=== PATIENT | male | born 1995 | race Caucasian/White ===

== ENCOUNTER 2017-11-30 16:25 | Inpatient (IN) | payer BC, OTHER ==
[~2017-11-30] VITALS: Ht 185.4 cm; Wt 83.9 kg
--- NOTE | 2017-11-30 19:45 | NUR ---
Intake Note Assessment done in intake office. Px is A&Ox4. Px is ambulatory with steady gait. Speech is clear and audible. Px appears anxious but cooperative.VS as follows BP= 130/63, OR= 80, RR= 18, T= 97.2, O2sat= 99% in RA. Px is here for medically supervised withdrawal from Heroin. Px has no seizure hx. Px reported NKA. Px brought some medicines to be reconciled. Admission process will continue in the unit.
[2017-11-30] MEDS ORDERED: ONDANSETRON 4 MG/2 ML VIAL IM PRN (20:00)
[2017-11-30] MEDS ORDERED: IBUPROFEN 400 MG TABLET PO PRN (20:00)
[2017-11-30] MEDS ORDERED: CLONIDINE HCL 0.1 MG TABLET PO PRN (20:00)
[2017-11-30] MEDS ORDERED: DICYCLOMINE HCL 20 MG TABLET PO PRN (20:00)
[2017-11-30] MEDS ORDERED: LOPERAMIDE HCL 2 MG CAPSULE PO PRN ×2 (20:00)
[2017-11-30] MEDS ORDERED: ACETAMINOPHEN 325 MG TABLET PO PRN (20:00)
[2017-11-30] MEDS ORDERED: MAG HYDROX/AL HYDROX/SIMETH 30 ML LIQUID UDC PO PRN (20:00)
[2017-11-30] MEDS ORDERED: ONDANSETRON ODT 4 MG TAB.RAPDIS SL PRN (20:00)
[2017-11-30] MEDS ORDERED: MAGNESIUM HYDROXIDE 30 ML LIQUID UDC PO PRN (20:00)
[2017-11-30] MEDS ORDERED: MIRALAX 17 GM POWD.PACK PO PRN (20:00)
[2017-11-30] MEDS ORDERED: BUPR200T2 PO (20:01)
[2017-11-30] MEDS ORDERED: PARO20TA51 PO (20:01)
[2017-11-30 20:30] VITALS: BP 120/63
--- NOTE | 2017-11-30 20:30 | NUR ---
Admission Note Admitted a 22 y/o male inder for medically supervised withdrawal from Heroin. Px arrived in [facility] unit on 11/30/2017 at 2003. Body searched done and skin check performed, no contraband found and skin is intact. Inder's height is 6'1" and weighs 185 lbs. in standing scale. Px is oriented to floor unit and his room. Px follows a regular diet, reported NKA to food or drugs, and wishes to be in FULL CODE. No SOB reported. Respirations are even and unlabored. Abdomen is non-distended with active bowel sounds in all 4 quadrants. Last BM reported was 11/29/2017. No N/V reported. Px reported PMHx of anxiety. Px denies suicidal thoughts or hx of seizure. Px have not yet provided urine for UDS. Px reported substance abuse of Heroin- 0.5 G IV daily for 3-4 mos, where the last use was 2 hours prior admission, 0.3-0.4 G IV. Px is using heroin for 1 year. Px reported 4-5x treatments before. Px denies hospitalization for the past 30 days. Px stated that his longest sobriety was 4-5 mos in 2017. Inder is a cigarette smoker, 6 sticks daily as reported. Px refused flu and pneumonia vaccines. VS as follows BP= 120/63, NC= 64, RR=16, T= 37.6, O2sat= 100% on RA. COWS 4. Bed on lowest position, side rails up 2x, and call light within reach. We'll continue to monitor. Addendum: 12/01/17 at 0153 by LIZ ATKINS RN Correction T=97.6
[2017-11-30 21:01] LABS: BASOPHILS # (AUTO) 0.1 K/uL (0.0-8.0); BASOPHILS % (AUTO) 0.8 % (0.0-2.0); EOSINOPHILS # (AUTO) 0.3 K/uL (0.0-0.7); EOSINOPHILS % (AUTO) 3.7 % (0.0-7.0); HEMATOCRIT 37.8 % (36.7-47.1); HEMOGLOBIN 12.7 g/dL (12.5-16.3); LYMPHOCYTES # (AUTO) 2.7 K/uL (20.0-40.0); MEAN CORPUSCULAR HEMOGLOBIN 28.1 uug (23.8-33.4); MEAN CORPUSCULAR HGB CONC 34 g/dL (32.5-36.3); MEAN CORPUSCULAR VOLUME 83.8 fL (73.0-96.2); MONOCYTES # (AUTO) 1.2 K/uL (2.0-10.0); MONOCYTES % (AUTO) 16.3 % (0.0-11.0); NEUTROPHILS # (AUTO) 3.1 K/uL (1.8-8.9); NEUTROPHILS % (AUTO) 42.2 % (38.5-71.5); PLATELET COUNT (AUTO) 256 K/uL (152-348); RED BLOOD CELL COUNT(AUTO) 4.51 MIL/uL (4.06-5.63); WHITE BLOOD COUNT (AUTO) 7.2 K/uL (3.6-10.2)
[2017-11-30 21:09] LABS: ETHANOL < 3 MG/DL (0-0)
[2017-11-30 21:10] LABS: ALANINE AMINOTRANSFERASE 53 U/L (16-63); ALKALINE PHOSPHATASE 89 U/L (50-136); AMYLASE 29 U/L (25-115); ASPARTATE AMINOTRANSFERASE 26 U/L (15-37); BILIRUBIN,TOTAL 0.3 mg/dL (0.2-1.0); CARBON DIOXIDE 33 mmol/L (21-32); CHLORIDE 99 mmol/L (98-107); GLUCOSE 62 mg/dL (74-106); LIPASE 70 U/L (73-393); POTASSIUM 4.1 mmol/L (3.5-5.1); TOTAL PROTEIN, SERUM 8.1 g/dL (6.4-8.2); UREA NITROGEN, BLOOD 13 mg/dL (7-18)
[2017-11-30 21:30] LABS: BAND % (MANUAL) 5 % (0-10); EOSINOPHILS % (MANUAL) 2 % (0-8); LYMPHOCYTES % (MANUAL) 40 % (20-40); MONOCYTES % (MANUAL) 16 % (2-10); NEUTROPHILS % (MANUAL) 37 % (42-75)
[2017-11-30 21:37] LABS: THYROID STIMULATING HORMONE 3.114 mIU/mL (0.358-3.740)
[2017-11-30] MEDS ORDERED: BUPR200T PO (22:48)
[2017-11-30] MEDS ORDERED: MAGN250T10 PO (22:48)
[2017-11-30] MEDS ORDERED: PARO20TA7 PO (22:48)
[2017-12-01] VITALS: BP 116/64
[2017-12-01 04:00] VITALS: BP 121/70
--- NOTE | 2017-12-01 04:00 | NUR ---
COWS deferred COWS deferred at 0000 and 0400 due to the px is asleep, to assess if the px is awake per doctor's order. We'll continue to monitor.
--- NOTE | 2017-12-01 07:10 | NUR ---
End of Shift Note During the shift, px slept most of the time. Px didn't provide urine yet for UDS. Blood was drawn for labs. Pxs oral intake is 500 ml, no urine, No BM. Slept for 8 hours. Bed in lowest position, side rails up 2x, and call light within reach. We'll continue to monitor.
--- NOTE | 2017-12-01 07:45 | NUR ---
START OF SHIFT Endorse rcvd from ongoing nurse, client is lying in bed, he is a/o X 4, client presents with irritable mood, flat affect, skin moist, fine tremors, moist skin, restless legs, dilated pupils, goosebump, difficulty concentrating, he is jumpy and answers with a loud voice. Client reports difficulty sleeping, pins and needle sensation on legs, fatigue, nausea, loose stools, generalized body aches, and sweats. Encourage client to increase PO fluid to facilitate detox. Encourage client to participate in ADL and to attend group therapy for skills to maintain sober. Client has not been able to provide urine for drug screening. Last COWS 4 @ 2000. Client slept 8 hrs. [place] precautions rendered. Call light within reach.
[2017-12-01 08:00] VITALS: BP 125/68
[2017-12-01] MEDS ORDERED: TUBERCULIN,PURIF.PROT.DERIV. 5 TU/0.1 ML TEST ID ONE (09:00)
[2017-12-01] MEDS: BUPRENORPHINE HCL 2 MG TAB.SUBL SL PRN ×2 (09:24→15:07)
--- NOTE | 2017-12-01 09:24 | NUR ---
PRN Subutex 4mg SL administered for anxiety, irritability, joint pain, nausea, loose stool, tremors, sweats, shills, dilated pupils, goosebump, COWS 18, Call light within reach..
--- NOTE | 2017-12-01 09:26 | NUR ---
PPD Test administered to L forearm, client tolerated well.
--- NOTE | 2017-12-01 09:54 | NUR ---
Reassess PRN Subutex 4mg, client reports feeling relief of joint pain, he appears less anxious and irritable, COWS 13, Call light within reach..
[2017-12-01 10:25] LABS: *AMPHETAMINE, URINE NEGATIVE (NEGATIVE); *BARBITURATE, URINE NEGATIVE (NEGATIVE); *CANNABINOID, URINE POSITIVE (NEGATIVE); *COCCAINE, URINE NEGATIVE (NEGATIVE); *OPIATE, URINE POSITIVE (NEGATIVE); *PHENCYCLIDINE SCREEN,URINE NEGATIVE (NEGATIVE)
[2017-12-01] MEDS: PAROXETINE HCL 20 MG TABLET PO SCH (11:31)
[2017-12-01] MEDS: buPROPion SR 100 MG TABLET.SA PO SCH (11:31)
[2017-12-01 12:00] VITALS: BP 128/74
--- NOTE | 2017-12-01 15:07 | NUR ---
PRN Subutex 4mg SL administered for anxiety, irritability, joint pain, nausea, loose stool, tremors, red, teary eyes, yawning, sweats, shills, dilated pupils, goosebump, COWS 19, Call light within reach.
--- NOTE | 2017-12-01 15:08 | NUR ---
PRN Tylenol 650mg Po administered for LAMAR @ frontal area, does not radiate, pain level 6/10. Call light within reach.
--- NOTE | 2017-12-01 15:37 | NUR ---
Reassess PRN Subutex 4mg, client continues to present with anxious, irritable mood, he reports relief from nausea, joint pain, and denies any more loose stools. COWS 12, Call light within reach.
--- NOTE | 2017-12-01 16:08 | NUR ---
Reassess PRN Tylenol 650mg, client verbalizes relief from LAMAR pain level 0/10. Call light within reach.
[2017-12-01 16:55] VITALS: BP 117/66
--- NOTE | 2017-12-01 19:30 | NUR ---
END OF SHIFT Endorsed client to incoming nurse, client is a/o x 4, he needs encouragement to attend group therapy, client remains isolated in his room due to withdrawal symptoms, he continues to present with anxious mood, flat affect, restless legs, fine tremors, and nausea. He consumed ~50% of meals. PRN Tylenol 650mg PO for LAMAR, Subutex 4mg SL x 2 for COWS >12, noted effective. Adequate PO fluid intake 2084mL, void x 2, stool x 1. Last COWS 12 @ 1600. Call light within reach.
--- NOTE | 2017-12-01 19:45 | NUR ---
Start of Shift Note Received a 22 y/o male px admitted on 11/30/2017 for medically supervised withdrawals from opiate. Px was placed on on 3 day modified Subutex taper. Px tolerating well. Px is awake on bed in fowlers position. Px stated "My anxiety is mild at the moment, but I have hot/flushed chills". Bed in lowest position, side rails up 2x and call light within reach. We'll continue to monitor.
[2017-12-01 20:00] VITALS: BP 118/66
[2017-12-01] MEDS: diphenhydrAMINE 50 MG CAPSULE PO PRN (20:13)
[2017-12-01] MEDS ORDERED: BUPRENORPHINE HCL 2 MG TAB.SUBL SL SCH (21:00)
[2017-12-01] MEDS: METHOCARBAMOL 750 MG TABLET PO PRN (23:40)
--- NOTE | 2017-12-01 23:40 | NUR ---
PRN meds At 2012, Benadryl 50 mg PO given as PRN for insomnia. At 2339, Clonidine 0.1 mg/tab, 1 tab and Robaxin 750 mg/tab, 1 tab given PO as PRN for restless legs and leg pain of 6/10. We'll continue to monitor.
[2017-12-02] VITALS: BP 120/70
--- NOTE | 2017-12-02 00:45 | NUR ---
Reassessment of restless legs and pain Reassessment was deferred due to the px is already asleep. We'll continue to monitor.
[2017-12-02 04:00] VITALS: BP 112/62
--- NOTE | 2017-12-02 04:00 | NUR ---
COWS deferred COWS deferred due to the px is asleep, to assess if the px is awake per doctor's order. We'll continue to monitor.
--- NOTE | 2017-12-02 07:30 | NUR ---
START OF SHIFT Endorse rcvd from ongoing nurse, client is lying in bed, he is a/o X 4, client presents with anxious mood, flat affect, skin moist, fine tremors, moist skin, restless legs, dilated pupils, goosebump, difficulty concentrating. Client reports pins and needle sensation on legs, fatigue, nausea, generalized body aches, and sweats. Encourage client to increase PO fluid to facilitate detox. Encourage client to participate in ADL and to attend group therapy for skills to maintain sober. Client is on 3 day Subutex taper. Last COWS 8 @ 2400. Client slept 4 hrs. [place] precautions rendered. Call light within reach.
--- NOTE | 2017-12-02 07:37 | NUR ---
End of Shift Note During the shift at 2012, Benadryl 50 mg PO given for insomnia. It was not so effective, px slept only for 4 hours. At 2340, Px was given Robaxin 750 Po and Clonidine 0.1 mg PO for restless legs and pain. Pxs oral intake is 1 L, voided 2x, BM 1x. Last COWS 8. At 0630, px is asleep on bed in left side lying position. Bed in lowest position, side rails up 2x and call light within reach. We'll continue to monitor. Px endorsed to AM shift nurse.
[2017-12-02 08:00] VITALS: BP 103/62
[2017-12-02 08:07] LABS: HEPATITIS B SURFACE AG Negative (Negative)
[2017-12-02] MEDS: PAROXETINE HCL 20 MG TABLET PO SCH (08:59)
[2017-12-02] MEDS: buPROPion SR 100 MG TABLET.SA PO SCH (08:59)
[2017-12-02] MEDS: BUPRENORPHINE HCL 2 MG TAB.SUBL SL SCH ×3 (08:59→21:31)
[2017-12-02] MEDS ORDERED: HYDROXYZINE PAMOATE 25 MG CAPSULE PO PRN (09:00)
[2017-12-02 12:00] VITALS: BP 127/63
--- NOTE | 2017-12-02 12:46 | NUR ---
Therapist encouraged client to go to groups and share with others, which would benefit with reducing anxiety and social isolation.
[2017-12-02] MEDS ORDERED: GABAPENTIN 300 MG CAPSULE PO SCH ×2 (15:00→21:00)
[2017-12-02 16:55] VITALS: BP 117/65
--- NOTE | 2017-12-02 19:38 | NUR ---
END OF SHIFT Endorsed client to incoming nurse, client is a/o x 4, he needs encouragement to attend group therapy, client remains isolated in his room due to withdrawal symptoms, he continues to present with anxious mood, flat affect, restless legs, fine tremors, and nausea. He consumed ~50% of meals. Adequate PO fluid intake 1955mL, void x 3. Last COWS 16 @ 1600. Call light within reach.
--- NOTE | 2017-12-02 19:45 | NUR ---
Start of Shift Notes Received a 22 y/o male px, admitted on 11/30/2017 for medically supervised withdrawals from Opiate. Px is awake lying on bed in fowlers position. Few unfinished snacks noted on top of bed side table and cabinet. Px stated "My anxiety is 1/10, and can I have Seroquel before I sleep? Last night was hard, I didn't sleep well". Last reported COWS 16 from AM shift nurse. Bed in lowest position, side rails up 2x, and call light within reach. We'll continue to monitor.
[2017-12-02 20:00] VITALS: BP 121/55
[2017-12-02] MEDS: METHOCARBAMOL 750 MG TABLET PO PRN (21:31)
[2017-12-02] MEDS: diphenhydrAMINE 50 MG CAPSULE PO PRN (21:31)
--- NOTE | 2017-12-02 21:31 | NUR ---
PRN meds Px was given Benadryl 50 mg/cap, 1 cap given PO and Vistaril 25 mg/cap, 2 caps given PO for insomnia. Robaxin 750 mg/tab, 1 tab given PO for leg pain of 6/10. We'll continue to monitor.
--- NOTE | 2017-12-02 22:30 | NUR ---
Reassessment of leg pain Px stated that his leg pain improved from 6/10 to 1-2/10. We'll continue to monitor.
[2017-12-03] VITALS: BP 118/63
[2017-12-03 04:00] VITALS: BP 118/63
--- NOTE | 2017-12-03 07:15 | NUR ---
End of Shift Notes During the shift at 2130, Benadryl 50 mg PO and Vistaril 50 mg PO were given for insomnia and Robaxin 750 mg PO for leg pain. They were effective. Px's oral intake is 500 ml, voided 1x, No BM. Px slept for 7.5 hours. Last COWS 7. At 0630, Px is asleep on bed. Last COWS 7. Bed in lowest position, side rails up 2x, and call light within reach. We'll continue to monitor. Px endorsed to AM shift nurse.
--- NOTE | 2017-12-03 07:34 | NUR ---
Start of Shift Notes: Received patient in his room. Alert and oriented x 4. Verbally responsive. No AV hallucinations noted. No S/I or H/I noted. Patient states "I've been better." Patient is a 22 year old male admitted for opiate withdrawal who was placed on a 3-day Subutex taper as ordered. No adverse reactions noted. Educated patient on his current plan of care for the day and his medication regimen. Slept for 7 hours. Last COWS 6. Will continue to monitor closely.
[2017-12-03 08:00] VITALS: BP 109/55
[2017-12-03] MEDS ORDERED: BUPRENORPHINE HCL 2 MG TAB.SUBL SL SCH (09:00)
[2017-12-03] MEDS: PAROXETINE HCL 20 MG TABLET PO SCH (09:09)
[2017-12-03] MEDS: buPROPion SR 100 MG TABLET.SA PO SCH (09:09)
[2017-12-03 12:00] VITALS: BP 126/62
[2017-12-03] MEDS ORDERED: ONDA4TAB11 SL (12:46)
[2017-12-03] MEDS ORDERED: PARO20TA7 PO (12:46)
[2017-12-03] MEDS ORDERED: METH-406 PO (12:46)
[2017-12-03] MEDS ORDERED: CLON0.1T14 PO (12:46)
[2017-12-03] MEDS ORDERED: DIPH50CA37 PO (12:46)
[2017-12-03] MEDS ORDERED: HYDR-3895 PO (12:46)
[2017-12-03] MEDS ORDERED: DICY20TA28 PO (12:46)
[2017-12-03] MEDS ORDERED: BUPR100T6 PO (12:46)
[2017-12-03 16:00] VITALS: BP 114/71
--- NOTE | 2017-12-03 19:18 | NUR ---
Psych MD Communication: Dr. Campa (on-call) notified of patient's request for Seroquel to help him sleep. Orders obtained. Orders noted and carried out. MD is unable to enter in orders at this time. Will continue to monitor.
--- NOTE | 2017-12-03 19:21 | NUR ---
End of Shift Notes: Patient completed his 3-day modified Subutex taper as ordered. No adverse reactions noted. VS monitored closely. No significant abnormalities noted. Withdrawal symptoms were closely monitored. Initial COWS 7, patient presented with chills, hot flashes, nasal stuffiness, myalgia, fine tremors and anxiety. Last COWS 5. Patient vebrbalized that Subutex has been effective in reducing his withdrawal symptoms. Participated in group and activities. All needs met and attended. Will continue to monitor closely.
[2017-12-03] MEDS ORDERED: QUETIAPINE FUMARATE 25 MG TABLET PO PRN (19:30)
[2017-12-03 20:00] VITALS: BP 134/67
--- NOTE | 2017-12-03 20:16 | NUR ---
START OF SHIFT Pt is a 22 y/o male px admitted on 11/30/2017 for opiate withdrawals. Pt has completed his 3 day modified Subutex taper and is scheduled for discharge tomorrow. Pt is A/O X 4,states feeling better, c/o mild anxiety .Last COWS=5. All safety measures in place. Call light is with in reach.Will continue to monitor for safety.
[2017-12-03] MEDS: METHOCARBAMOL 750 MG TABLET PO PRN (22:30)
--- NOTE | 2017-12-03 22:32 | NUR ---
PRN MEDS PRN ROBAXIN AND SEROQUEL GIVEN ORDERED FOR C/O MYALGIA AND INSOMNIA.WILL MONITOR FOR EFFECTIVENESS.
--- NOTE | 2017-12-03 23:30 | NUR ---
PRN F/U PRN MEDS ARE EFFECTIVE.PT IS RESTING IN BED WITH EYES CLOSED,NO S/S OF DISTRESS NOTED,BREATHING IS EVEN AND NON LABORED.WILL CONTINUE TO MONITOR.
[2017-12-04] VITALS: BP 122/71
--- NOTE | 2017-12-04 | NUR ---
COWS DEFERRED D/T PT BEING ASLEEP.PT IS SLEEPING COMFORTABLY,BREATHING IS EVEN AND NON LABORED,NO S/S OF DISTRESS NOTED.WILL CONTINUE TO MONITOR.
[2017-12-04 04:00] VITALS: BP 101/62
--- NOTE | 2017-12-04 04:00 | NUR ---
COWS DEFERRED D/T PT BEING ASLEEP.PT IS SLEEPING COMFORTABLY,BREATHING IS EVEN AND NON LABORED,NO S/S OF DISTRESS NOTED.WILL CONTINUE TO MONITOR.
--- NOTE | 2017-12-04 06:52 | NUR ---
END OF SHIFT Pt is a 22 y/o male px admitted on 11/30/2017 for opiate withdrawals. Pt has completed his 3 day modified Subutex taper and is scheduled for discharge today. Pt is A/O X 4.PRN Seroquel and Robaxin given last night with good effect.Last COWS=5.Pt slept 7 hrs,fluid intake was 1092 mls,voided x 4 . All safety measures in place. Call light is with in reach.Will continue to monitor for safety.
--- NOTE | 2017-12-04 07:45 | NUR ---
START OF SHIFT Received report from date night caregiver nurse. Pt is lying in bed resting. She is a 48 yo female admitted to [facility] on 12/03 for ETOH dependence with a h/o using crack cocaine, and Ativan. NKA, full code, regular diet. On admission she reported drinking vodka 1-2 pints per day. 5 day Ativan taper to start today. Mg level 1.6 with orders for replacement today. Pt's hair and clothes are disheveled and she is observed with tremors. Respirations even and unlabored. Skin is warm and moist. Safety measures in place. Addendum: 12/04/17 at 1010 by TOMY ARCINIEGA RN Incorrect patient. Disregard note.
--- NOTE | 2017-12-04 07:45 | NUR ---
START OF SHIFT Received report from sack cleaning hand nurse. Pt is lying in bed resting and easily arousable. He is a 29 yo male admitted to [facility] on 11/30 for opiate dependence. NKA, full code, regular diet. On admission he reported using heroin 0.5 grams per day. 3 day modified subutex taper complete and he is scheduled for discharge today. Respirations even and unlabored. Skin is warm and dry. Minimal s/s of withdrawal noted. Pt is cooperative with treatment. Safety measures in place
[2017-12-04 08:00] VITALS: BP 126/62
[2017-12-04] MEDS: PAROXETINE HCL 20 MG TABLET PO SCH (08:26)
[2017-12-04] MEDS: buPROPion SR 100 MG TABLET.SA PO SCH (08:27)
[2018-01-07] MEDS ORDERED: HYDR-3895 PO (12:37)
[2018-01-07] MEDS ORDERED: CLON0.1T14 PO (12:37)
[2018-01-07] MEDS ORDERED: TRAZ-144 PO (12:37)
[2018-01-07] MEDS ORDERED: IBUP-1955 PO (12:37)
[2018-01-07] MEDS ORDERED: METH-406 PO (12:37)
[2018-01-07] MEDS ORDERED: DICY20TA28 PO (12:37)
[2018-01-29] MEDS ORDERED: METH-406 PO (18:42)
[2018-01-29] MEDS ORDERED: IBUP-1955 PO (18:42)
[2018-01-29] MEDS ORDERED: CLON0.1T14 PO (18:42)
[2018-01-29] MEDS ORDERED: DICY20TA28 PO (18:42)
[2018-01-29] MEDS ORDERED: GABA-534 PO (18:42)
[2018-01-29] MEDS ORDERED: HYDR-3895 PO (18:42)
[2018-01-29] MEDS ORDERED: TRAZ-144 PO (18:42)
== END 2017-12-04 09:40 | disposition other institution (70) | DRG 895 ==
LOC: SRC 19:22
PROVIDERS: ADMIT Internal Medicine; ATTEND Internal Medicine
PROC: HZ2ZZZZ Detoxification Services for Substance Abuse Treatment (ICD-10-PCS; principal; 2017-11-30)
PROC: HZ41ZZZ Group Counseling for Substance Abuse Treatment, Behavioral (ICD-10-PCS; 2017-12-02)
PROC: HZ31ZZZ Individual Counseling for Substance Abuse Treatment, Behavioral (ICD-10-PCS; 2017-12-03)
DX: F11.23 Opioid dependence with withdrawal (principal); F12.10 Cannabis abuse, uncomplicated; F17.210 Nicotine dependence, cigarettes, uncomplicated; F41.9 Anxiety disorder, unspecified; F32.9 Major depressive disorder, single episode, unspecified; Z79.899 Other long term (current) drug therapy
CPT/HCPCS: 36415; 70030-TC; 80307; 80349; 80361; 83690; 83735; 84443; 85025; 86580; 86592; 86705; 86803; 87340; 87806; G0480; Q0163

== ENCOUNTER 2018-01-05 12:51 | Inpatient (IN) | payer BC, OTHER ==
[~2018-01-05] VITALS: Ht 185.4 cm; Wt 86.2 kg
[~2018-01-05 12:51] MED LIST: BUPR100T6 PO; CLON0.1T14 PO; DICY20TA28 PO; DIPH50CA37 PO; HYDR-3895 PO; MAGN250T10 PO; METH-406 PO; ONDA4TAB11 SL; PARO20TA7 PO
[2018-01-05] MEDS ORDERED: QUET100T PO (18:44)
[2018-01-05] MEDS ORDERED: CETI-102 PO (18:45)
[2018-01-05] MEDS ORDERED: FLUT9.9S NS (18:46)
[2018-01-05] MEDS ORDERED: TRAZ-144 PO (18:48)
[2018-01-05] MEDS ORDERED: CYCL10TA9 PO (18:48)
--- NOTE | 2018-01-05 18:52 | NUR ---
PRE ADMISSION Patient at intake, 22 year old male noted restless and fidgety, unable to sit still. Patient bp: 135/86 heart rate: 122 t: 98.1 r: 16 o2 sat: 99%. Patient reports he is here to detox off of: heroin and methamphetamine. Patient reports he relapsed two weeks ago and since then has been consuming heroin on a daily basis, and consumed methamphetamine 3-4 times in a two week period. Patient reports used heroin and methamphetamine a few hours prior to coming to [facility] detox. Patient brought all his home medications with him. reports past medical history of: anxiety. denies any history of seizures. Patients pupils are pinned. patient is hyperverbal and unable to sit still. Addendum: 01/05/18 at 1857 by EDMUND PEREA LVN Patient is six feet one inch tall and weighs 190 lbs. patient noted with track bennett to bilateral arms.
[2018-01-05] MEDS ORDERED: DICYCLOMINE HCL 20 MG TABLET PO PRN (19:15)
[2018-01-05] MEDS ORDERED: IBUPROFEN 600 MG TABLET PO PRN (19:15)
[2018-01-05] MEDS ORDERED: MAG HYDROX/AL HYDROX/SIMETH 30 ML LIQUID UDC PO PRN (19:15)
[2018-01-05] MEDS ORDERED: BUPRENORPHINE HCL 2 MG TAB.SUBL SL PRN (19:15)
[2018-01-05] MEDS ORDERED: ACETAMINOPHEN 325 MG TABLET PO PRN (19:15)
[2018-01-05] MEDS ORDERED: LORAZEPAM 1 MG TABLET PO PRN (19:15)
[2018-01-05] MEDS ORDERED: ONDANSETRON ODT 4 MG TAB.RAPDIS SL PRN (19:15)
[2018-01-05] MEDS ORDERED: MAGNESIUM HYDROXIDE 30 ML LIQUID UDC PO PRN (19:15)
[2018-01-05] MEDS ORDERED: ONDANSETRON 4 MG/2 ML VIAL IM PRN (19:15)
[2018-01-05] MEDS ORDERED: LOPERAMIDE HCL 2 MG CAPSULE PO PRN ×2 (19:15)
[2018-01-05] MEDS ORDERED: diphenhydrAMINE 50 MG CAPSULE PO PRN (19:15)
[2018-01-05] MEDS ORDERED: METHOCARBAMOL 750 MG TABLET PO PRN (19:15)
[2018-01-05] MEDS ORDERED: MIRALAX 17 GM POWD.PACK PO PRN (19:15)
[2018-01-05 19:25] VITALS: BP 135/86
--- NOTE | 2018-01-05 19:30 | NUR ---
Admission note Pt is a 22 yo male, A+Ox4, presenting to [facility] for Opiate/Meth withdrawal. Pt has NKA, is on Full code status, and on Regular diet. Pt is 6'0" in height and 190 LBS in weight. Pt has medical HX of Anxiety and insomnia. Pt has no family HX to report. Pt has no primary care provider. Pt has been using Heroin IV for 2 years (2weeks currently), has reached a level of 0.5gm/daily, and last dose was 0.5gm on 01-05-18 @1530. Pt has been using Methamphetamine IV for 1 years (2weeks currently), has reached a level of 0.3gm/daily, and last dose was 0.3gm on 01-05-18 @1530. Pt's home medications have all been reconciled in [facility] for further review by . Pt has HX of previous detox/rehab @ [facility] from December 01- December 04 followed by "about 30 days" @ [facility] and "about 4 days @ [facility] until about 2 weeks ago". This was the patient's last time sober. Pt has been a cigarette smoker for 4 years and has reached a level of 10/daily. Pt states "My situation is not great right now and i need to get sober again". Pt states "This place helped me a lot last time so i decided to do my detox here again". Pt states "I'm tired of going back and forth with sobriety so i am going to really work the program this time". Pt appears intoxicated but in stable condition. V/S WNL. Respirations even and unlabored. Will continue to monitor.
[2018-01-05 20:10] VITALS: BP 130/82
[2018-01-05 20:11] LABS: *AMPHETAMINE, URINE POSITIVE (NEGATIVE); *BARBITURATE, URINE NEGATIVE (NEGATIVE); *CANNABINOID, URINE POSITIVE (NEGATIVE); *COCCAINE, URINE NEGATIVE (NEGATIVE); *OPIATE, URINE POSITIVE (NEGATIVE); *PHENCYCLIDINE SCREEN,URINE NEGATIVE (NEGATIVE)
[2018-01-05] MEDS ORDERED: LORAZEPAM 1 MG TABLET PO SCH (21:00)
[2018-01-05 22:22] LABS: BASOPHILS % (AUTO) 0.5 % (0.0-2.0); EOSINOPHILS # (AUTO) 0.2 K/uL (0.0-0.7); EOSINOPHILS % (AUTO) 2.6 % (0.0-7.0); HEMATOCRIT 38.9 % (36.7-47.1); HEMOGLOBIN 13.5 g/dL (12.5-16.3); LYMPHOCYTES # (AUTO) 2.2 K/uL (20.0-40.0); LYMPHOCYTES % (AUTO) 26.8 % (20.5-51.5); MEAN CORPUSCULAR HEMOGLOBIN 29.3 uug (23.8-33.4); MEAN CORPUSCULAR HGB CONC 35 g/dL (32.5-36.3); MEAN CORPUSCULAR VOLUME 84.3 fL (73.0-96.2); MONOCYTES # (AUTO) 0.8 K/uL (2.0-10.0); MONOCYTES % (AUTO) 9.1 % (0.0-11.0); NEUTROPHILS # (AUTO) 5.1 K/uL (1.8-8.9); PLATELET COUNT (AUTO) 219 K/uL (152-348); RED BLOOD CELL COUNT(AUTO) 4.62 MIL/uL (4.06-5.63); WHITE BLOOD COUNT (AUTO) 8.3 K/uL (3.6-10.2)
[2018-01-05 22:41] LABS: ALANINE AMINOTRANSFERASE 64 U/L (16-63); ALKALINE PHOSPHATASE 98 U/L (50-136); ASPARTATE AMINOTRANSFERASE 39 U/L (15-37); BILIRUBIN,TOTAL 0.5 mg/dL (0.2-1.0); CARBON DIOXIDE 30 mmol/L (21-32); CHLORIDE 98 mmol/L (98-107); CREATININE 0.9 mg/dL (0.6-1.3); GLUCOSE 108 mg/dL (74-106); MAGNESIUM 1.9 mg/dL (1.8-2.4); POTASSIUM 3.3 mmol/L (3.5-5.1); TOTAL PROTEIN, SERUM 8.2 g/dL (6.4-8.2); UREA NITROGEN, BLOOD 10 mg/dL (7-18)
[2018-01-05 23:02] LABS: ETHANOL < 3 MG/DL (0-0)
[2018-01-05 23:15] LABS: THYROID STIMULATING HORMONE 1.489 mIU/mL (0.358-3.740)
[2018-01-06 00:55] VITALS: BP 142/84
[2018-01-06] MEDS ORDERED: POTASSIUM CHLORIDE 20 MEQ TAB.PRT.SR PO ONE ×2 (01:00→09:00)
[2018-01-06 04:21] VITALS: BP 127/68
--- NOTE | 2018-01-06 06:52 | NUR ---
End of shift note Newly admitted patient. Pt was continuously noted with anxiety, agitation, and restlessness. Pt remained in room for majority of shift except to go smoke on smoking patio, to get food from kitchen, and to interact with other patients in recreational room. No PRNs given during shift. Pt slept for a total of 5 HRS. Last COWS: 8 @0400. Respirations even and unlabored. Will endorse to day shift nurse.
--- NOTE | 2018-01-06 07:00 | NUR ---
Start of Shift Chief Scientific Officer received report on 22 year old male admitted to [facility] on 01/05/18 for medical management of Opiate and Methamphetamine withdrawals. Pt endorses NKA, full code and regular diet. Reports no PMH, with PPH of anxiety and depression. Pt currently has no ordered taper and is ordered PRN medication only, with no PRN medication administered on the NOC. Last COWS 8 recorded at 0400, per NOC. Chief Scientific Officer encounters pt in pts room resting with eyes closed and rise and fall of chest noted. With even and unlabored respirations. Bed in low position with wheels locked and side rails up x2. Will continue to monitor, support and encourage according to plan of care.
[2018-01-06 08:53] VITALS: BP 115/61
[2018-01-06] MEDS ORDERED: TUBERCULIN,PURIF.PROT.DERIV. 5 TU/0.1 ML TEST ID ONE (09:00)
[2018-01-06 12:36] VITALS: BP 120/61
[2018-01-06] MEDS: BUPRENORPHINE HCL 2 MG TAB.SUBL SL SCH ×2 (13:55→22:47)
[2018-01-06 16:37] VITALS: BP 121/65
[2018-01-06] MEDS: PAROXETINE HCL 20 MG TABLET PO SCH (17:15)
[2018-01-06] MEDS: buPROPion SR 100 MG TABLET.SA PO SCH (17:15)
--- NOTE | 2018-01-06 17:15 | NUR ---
Psych Medication Non-Administration Dr. Sibley into see pt. Restarted pt on home medications with first dose due at 1715, Pt anxious about taking medication at night and requests to take first dose in the morning. Sas Clinical Programmer notifies Dr. Sibley, on the unit, and MD states, " OK for first dose in am." Will continue to monitor, support and encourage according to plan of care
[2018-01-06] MEDS ORDERED: QUETIAPINE FUMARATE 100 MG TABLET PO SCH (18:00)
[2018-01-06] MEDS ORDERED: TRAZODONE 50 MG TABLET PO SCH (18:00)
--- NOTE | 2018-01-06 18:39 | NUR ---
PRN Ativan Pt complain of anxiety, sweating and mild nausea. Pt rates anxious as 8/10 and pt is visible anxious with anxious affect and mood. Supervisor Asphalt Paving administered medication per order, with pt tolerating well. Will continue to monitor, support and encourage according to plan of care. Addendum: 01/06/18 at 1843 by CATHY VAZQUEZ RN Pt's CIWA 11, assessed prior to administration.
--- NOTE | 2018-01-06 19:06 | NUR ---
End of Shift Bulldozer Mechanic provided report on 22 year old male admitted to [facility] on 01/05/18 for medical management of Opiate and Methamphetamine withdrawals. Pt endorses NKA, full code and regular diet. Reports no PMH, with PPH of anxiety and depression. Pt was started on a Subutex taper this afternoon. Pt hesitant to take scheduled does. Bulldozer Mechanic provided education and pt agreed and was administered per order, with pt tolerating well. Last COWS 10 recorded at 1600. Pt somnolent and lethargic until lunch when principal technical writer awakened pt to assess. Pts psychiatrist ordered pts psych medications for administration at 1715, but pt prefers to wait until am and refuses medication at this time. MD on unit and aware. MD okays pt not taking medication as scheduled and waiting till am dose. Pt has a flat affect and normal mood. A/O x4 and makes his needs known. Clear of though and speech content. Pt is energetic and social on the unit. Pt has had complaints of nausea, chills, sweating and anxiety. Endorses relief from medication provided. Bed in low position with wheels locked and side rails up x2. Will continue to monitor, support and encourage according to plan of care. Addendum: 01/06/18 at 1907 by CATHY VAZQUEZ RN Endorsed need for PRN Ativan Re-Assessment.
--- NOTE | 2018-01-06 19:11 | NUR ---
Start of shift note Received report from day shift nurse. Pt is a 22 yo male, A+Ox4, presenting to [facility] for Opiate/Meth withdrawal. Pt noted to be anxious, restless, agitated, and odorous. Pt has HX of Anxiety and Insomnia which will be monitored during shift. Pt is on modified Subutex taper, tolerated well. Respirations even and unlabored. Will continue to monitor.
[2018-01-06 20:10] VITALS: BP 129/78
[2018-01-06] MEDS ORDERED: TRAZODONE 50 MG TABLET PO PRN (21:00)
[2018-01-06] MEDS: QUETIAPINE FUMARATE 100 MG TABLET PO SCH (22:46)
--- NOTE | 2018-01-07 | NUR ---
PRN Clonidine Pt c/o anxiety and requested for PRN Clonidine. Medication given and tolerated well. Will reassess within 1 HR. Will continue to monitor.
[2018-01-07 00:33] VITALS: BP 132/87
--- NOTE | 2018-01-07 00:38 | NUR ---
PRN Clonidine Reassessment Medication effective. Pt expresses, reduction in anxiety. No s/s of ASE noted at this time. Respirations even and unlabored. Will continue to monitor.
[2018-01-07] MEDS: HYDROXYZINE PAMOATE 25 MG CAPSULE PO PRN ×2 (01:51→19:39)
--- NOTE | 2018-01-07 01:53 | NUR ---
PRN Vistaril and Trazodone Pt c/o anxiety and inability to sleep and requested for PRN Vistaril and Trazodone. Medications given and tolerated well. Will reassess within 1 HR. Will continue to monitor.
--- NOTE | 2018-01-07 02:50 | NUR ---
PRN Vistaril and Trazodone Reassessment Medications effective. Pt is resting well in bed. No s/s of ASE noted at this time. Respirations even and unlabored. Will continue to monitor.
[2018-01-07 04:04] VITALS: BP 127/82
--- NOTE | 2018-01-07 06:51 | NUR ---
End of shift note Pt was continuously noted with high levels of anxiety, agitation, and restlessness. Pt remained in room for majority of shift except to go smoke on smoking patio, to get food from kitchen, and to interact with other patients in recreational room. Pt was given PRN Clonidine @0000 and PRN Vistaril and Trazodone @0153. Pt slept for a total of 5 HRS. Last COWS: 8 @0400. Respirations even and unlabored. Will endorse to day shift nurse.
--- NOTE | 2018-01-07 07:24 | NUR ---
START OF SHIFT Pt is a 22 yr old male, admitted on 01/05/18 for Opiate withdrawal and is on a 3 day modified Subutex taper as ordered. Received report from second shift supervisor nurse. Pt received Clonidine PRN, Vistaril PRN and Trazodone PRN during the night. medication was effective. Pt slept for 5 hrs. Last COWS score was 8 at 0400. Pt is currently in bed sleeping with respirations even and unlabored. Skin is intact, warm and moist to touch. Pt is on fall precautions. Call light is within reach. Will continue to monitor.
--- NOTE | 2018-01-07 08:00 | NUR ---
COWS SCORE DEFERRED Pt is currently in bed sleeping. COWS assessment is unable to be assessed at this time. Will continue to monitor
[2018-01-07 08:06] LABS: HEPATITIS B SURFACE AG Negative (Negative)
[2018-01-07 08:56] VITALS: BP 95/45
[2018-01-07] MEDS: PAROXETINE HCL 20 MG TABLET PO SCH (10:18)
[2018-01-07] MEDS: buPROPion SR 100 MG TABLET.SA PO SCH (10:18)
[2018-01-07] MEDS: BUPRENORPHINE HCL 2 MG TAB.SUBL SL SCH ×3 (10:18→20:29)
--- NOTE | 2018-01-07 10:18 | NUR ---
COWS ASSESSMENT COMPLETE Pt is awake at this time. Pt is c/o anxiety and is noted with facial sweats. Pt is observed yawning more than 2 times. Pt is c/o teary eyes. COWS score is 9. Subutex 2mg SL as scheduled at 0900 was given at this time. Will continue to monitor.
[2018-01-07 12:24] VITALS: BP 123/81
[2018-01-07] MEDS ORDERED: HYDR-3895 PO (12:37)
[2018-01-07] MEDS ORDERED: METH-406 PO (12:37)
[2018-01-07] MEDS ORDERED: IBUP-1955 PO (12:37)
[2018-01-07] MEDS ORDERED: TRAZ-144 PO (12:37)
[2018-01-07] MEDS ORDERED: CLON0.1T14 PO (12:37)
[2018-01-07] MEDS ORDERED: DICY20TA28 PO (12:37)
--- NOTE | 2018-01-07 15:00 | NUR ---
MEDICATION REFUSED Pt refused to take Subutex 2mg SL scheduled at 1500. Pt was educated on medication regimen and risks and benefits. Pt was able to verbalize understanding but continued to refuse. Will continue to monitor.
[2018-01-07 16:00] VITALS: BP 110/56
--- NOTE | 2018-01-07 19:10 | NUR ---
END OF SHIFT Pt is a 22 yr old male, admitted on 01/05/18 for Opiate withdrawal and is on a 3 day modified Subutex taper as ordered. Pt was encouraged to attend group therapy during the day but refused to attend. Pt refused Subutex 2mg SL at 1500 and stated "I don't feel like I need it." Pt was educated on the importance of medication. Further education is needed. Pt has been noted with increase drowsiness and remained in bed throughout the day. Pt is noted flat affect and appearance is noted to be disheveled with dirty fingernails. Pt's room is observed with dirty clothes on the floor and foul odor. Skin is intact, warm and moist to touch. Last COWS score was 6 at 1600. No PRNs were given during the day. Pt is on fall precautions. Call light is within reach.
--- NOTE | 2018-01-07 19:15 | NUR ---
Start of Shift Note: Received patient from day shift nurse. Patient is a 22 y.o male admitted on 01/05/18 for medically supervised withdrawal from Heroin & Meth. Patient is flushed, has a flat affect, anxious/irritable mood. Pt presented with sweating, chills, restlessness & fine tremors . Pt is on Subutex taper and tolerating well. Last COWS 6. No PRN medications received during day shift. Encourage pt to increase fluid intake. Educated patient of current plan of care for the night. Safety measures in place. Will continue to monitor patient.
[2018-01-07] MEDS: CLONIDINE HCL 0.1 MG TABLET PO PRN ×2 (19:40)
--- NOTE | 2018-01-07 19:40 | NUR ---
PRN Clonidine & Vistaril Clonidine & Vistaril given as ordered for complaints of sweating, chills & anxiety. Will monitor for effectiveness.
[2018-01-07 20:00] VITALS: BP 129/68
[2018-01-07] MEDS ORDERED: HYDROXYZINE PAMOATE 25 MG CAPSULE PO PRN (20:15)
[2018-01-07] MEDS ORDERED: LORAZEPAM 1 MG TABLET PO PRN (20:15)
[2018-01-07] MEDS ORDERED: LORAZEPAM 1 MG TABLET PO ONE (20:15)
[2018-01-07] MEDS: QUETIAPINE FUMARATE 100 MG TABLET PO SCH (20:29)
--- NOTE | 2018-01-07 20:29 | NUR ---
Pt in his room still noted to be restless, anxious and agitated. Pt stated "I am so anxious, I feel like Im going to have a panic attack". PRN Vistaril was not effective and Clonidine was mildly effective d/t decreased in sweating and chills. MD notified with orders to give a one time order of Ativan 2mg for anxiety & agitation. Ativan 2mg PO and scheduled medications administered as ordered. Will continue to monitor patient.
--- NOTE | 2018-01-07 21:29 | NUR ---
Pt verbalized decreased in anxiety after medication administration. Pt noted ambulating in the hallway and appears calm. Will continue to monitor patient.
--- NOTE | 2018-01-08 07:16 | NUR ---
End of Shift Note: Pt had an uneventful night. Pt continues on a Subutex taper and tolerating well. Pt presented with anxiety, agitation, mild discomfort, sweating & chills. Last COWS 7. Pt PRN Clonidine for sweating & chills, Vistaril for anxiety & one time order of Ativan for anxiety during my shift. Vitals monitored closely and noted WNL. Continue to closely monitor s/s of withdrawals. Pt remained compliant with medications and treatment. Pt stable at this time. Encourage pt to increase fluid intake. Fluid intake: 996 ml, Voided 3x with 1x bowel movement. Pt slept for a total of 7 hours. All needs attended & met. Safety measures in place. Will endorse pt to day shift nurse.
--- NOTE | 2018-01-08 07:26 | NUR ---
START OF SHIFT Pt is a 22 yr old male, admitted on 01/05/18 for Opiate withdrawal and is on a 3 day modified Subutex taper as ordered. Received report from shift mechanic nurse. Pt received Clonidine PRN, Vistaril PRN and Ativan PRN during the night, medication was effective. Pt slept for 7 hrs. Last COWS score was 7 at 0400. Pt is currently in bed sleeping with respirations even and unlabored. Skin is intact, warm and moist to touch. Pt is on fall precautions. Call light is within reach. Will continue to monitor for safety and s/s withdrawal symptoms.
[2018-01-08 08:00] VITALS: BP 116/59
[2018-01-08] MEDS ORDERED: BUPRENORPHINE HCL 2 MG TAB.SUBL SL SCH (09:00)
[2018-01-08] MEDS: PAROXETINE HCL 20 MG TABLET PO SCH (09:27)
[2018-01-08] MEDS: buPROPion SR 100 MG TABLET.SA PO SCH (09:28)
--- NOTE | 2018-01-08 11:42 | NUR ---
Endorsed to Maryuri ANDERSON. VSS, Pt A&O x4, anxious, isolative, calm and cooperative. Last COWS at 0800 was 9. Pt will be discharged tomorrow and is looking forward to next step in recovery process. No PRN medications given. Pt was educated regarding plan of care for the day and medication regimen.
[2018-01-08 12:00] VITALS: BP 118/57
[2018-01-08] MEDS: CLONIDINE HCL 0.1 MG TABLET PO PRN (15:33)
--- NOTE | 2018-01-08 15:33 | NUR ---
PRN GIVEN Pt c/o increase anxiety and is noted to be fidgety. Clonidine 0.1mg PO PRN and Vistaril 50mg PO PRN was given as ordered. Medication xavier well. Will continue to monitor.
[2018-01-08 16:00] VITALS: BP 132/70
--- NOTE | 2018-01-08 16:33 | NUR ---
PRN RE-ASSESSMENT Pt states Clonidine PRN and Vistaril PRN was ineffective. Pt continues to c/o increase anxiety. Pt was educated on different coping mechanisms to cope with anxiety level. Pt was emilia to verbalize understanding. Will continue to monitor.
--- NOTE | 2018-01-08 19:04 | NUR ---
END OF SHIFT Pt is a 22 yr old male, admitted on 01/05/18 for Opiate withdrawal and has completed a 3 day modified Subutex taper as ordered. Pt was encouraged to attend group therapy during the day but refused to attend. Pt c/o increase anxiety and was observed fidgety. Skin is intact, warm and moist to touch. Pt received Clonidine 0.1mg PO PRN and Vistaril 50mg PO PRN at 1533 for anxiety. Pt stated medication was not effective. Pt was educated on coping mechanisms on how to cope with anxiety. Pt needs further education on disease process. Pt is to be discharged tomorrow on 01/09/18. Last COWS score was 10 at 1600. Pt is on fall precautions. Call light is within reach.
--- NOTE | 2018-01-08 19:30 | NUR ---
START OF SHIFT Pt is a 22 yr old male admitted for Opiate withdrawal. He has completed a 3 day Subutex taper as ordered. No A/R noted. Pt is scheduled to be discharged tomorrow on 01/09/18. Last COWS score was 10 at 1600. Pt received sleeping in bed; breathing is even and non labored; all safety measures in place per hospital policy; call diaz is within reach. Pt is on fall precautions. Will continue to monitor for safety.
[2018-01-08 20:00] VITALS: BP 105/65
[2018-01-08] MEDS: QUETIAPINE FUMARATE 100 MG TABLET PO SCH (21:04)
[2018-01-09] VITALS: BP 100/61
--- NOTE | 2018-01-09 04:00 | NUR ---
V/S REFUSED V/S/COWS DEFERRED PT IS SLEEPING COMFORTABLY IN BED.BREATHING IS EVEN AND NON LABORED.ALL SAFETY MEASURES IN PLACE WITH CALL LIGHT WITHIN REACH.PT REFUSED V/S.COWS DEFERRED DUE TO PT BEING ASLEEP.WILL CONTINUE TO MONITOR.
--- NOTE | 2018-01-09 06:40 | NUR ---
END OF SHIFT Pt is a 22 yr old male admitted for Opiate withdrawal. He has completed a 3 day Subutex taper as ordered. No A/R noted. Pt is scheduled to be discharged today. Last COWS score was 3.No PRN meds given during the night.Pt slept 8 hrs,fluid intake was 855 mls,voided x 3 .All safety measures in place per hospital policy; call diaz is within reach. Pt is on fall precautions. Will endorse care to oncoming shift nurse.
--- NOTE | 2018-01-09 07:42 | NUR ---
START OF SHIFT NOTE Received report from night nurse, 22 year old male admitted for Opioid withdrawal. Patient completed his taper tolerating well. Per endorsement patient did not receive any PRN'S and patient slept for 8 hours, last COWS score was 3. Patient set for discharge today at 0900. Received patient alert awake agitated, anxious but motivated being discharge. Patient due for scheduled medications. Educated patient with current plan of care of rehab medications regimen and importance of attending groups and activities with good verbal understanding. Safety measures in place. Will cont with plan of care.
[2018-01-09 08:00] VITALS: BP 99/62
[2018-01-09] MEDS: buPROPion SR 100 MG TABLET.SA PO SCH (08:16)
[2018-01-09] MEDS: PAROXETINE HCL 20 MG TABLET PO SCH (08:16)
--- NOTE | 2018-01-09 09:28 | NUR ---
DISCHARGE NOTE Patient has been discharged from [facility] Patient is in Stable condition, VS WNL. Denies suicidal and homicidal ideations at this time. All documentation has been completed, paperwork signed and dated. Pt left with all of his belongings, medications and prescriptions. Pt has been discharged from [facility] on 01/09/18 at 0928. has been Notified.
== END 2018-01-09 10:19 | disposition other institution (70) | DRG 895 ==
LOC: SRC 17:59
PROVIDERS: ADMIT Internal Medicine; ATTEND Internal Medicine
PROC: HZ2ZZZZ Detoxification Services for Substance Abuse Treatment (ICD-10-PCS; principal; 2018-01-05)
PROC: HZ41ZZZ Group Counseling for Substance Abuse Treatment, Behavioral (ICD-10-PCS; 2018-01-06)
PROC: HZ31ZZZ Individual Counseling for Substance Abuse Treatment, Behavioral (ICD-10-PCS; 2018-01-06)
DX: F11.23 Opioid dependence with withdrawal (principal); F33.2 Major depressive disorder, recurrent severe without psychotic features; I15.9 Secondary hypertension, unspecified; E87.1 Hypo-osmolality and hyponatremia; F15.20 Other stimulant dependence, uncomplicated; G47.00 Insomnia, unspecified; Z59.0 Homelessness; Z91.89 Other specified personal risk factors, not elsewhere classified; Z81.1 Family history of alcohol abuse and dependence; Z79.899 Other long term (current) drug therapy; F41.1 Generalized anxiety disorder; E86.0 Dehydration; E87.6 Hypokalemia; F12.10 Cannabis abuse, uncomplicated; Z59.1 Inadequate housing; F41.0 Panic disorder [episodic paroxysmal anxiety]; R74.0 Nonspecific elevation of levels of transaminase and lactic acid dehydrogenase [LDH]; R73.9 Hyperglycemia, unspecified; F10.120 Alcohol abuse with intoxication, uncomplicated; Y90.9 Presence of alcohol in blood, level not specified
CPT/HCPCS: 36415; 70030-TC; 80307; 83735; 84443; 85025; 86580; 86592; 86705; 86803; 87340; 87806; A4663; G0480

== ENCOUNTER 2018-01-27 18:38 | Inpatient (IN) | payer BC, OTHER ==
[~2018-01-27] VITALS: Ht 182.9 cm; Wt 86.2 kg
[~2018-01-27 18:38] MED LIST changes: +CETI-102 PO; -DIPH50CA37 PO; +IBUP-1955 PO; -MAGN250T10 PO; -ONDA4TAB11 SL; +QUET100T PO; +TRAZ-144 PO
--- NOTE | 2018-01-27 20:35 | NUR ---
INTAKE NOTE: Patient is a 22 year old male appears high intoxicated. He is assessed at intake. VS: T: 99.8, BP: 119/81, HR 99, RR 18, RA O2SAT: 96%, pain level: "0/10". Patient reports he is coming for "Detox". Patient is poor historian r/t high level of intoxication. Patient reports last used "Heroin via IV 0.5 grams and Methamphetamine via IV 0.3 gram on 01/27/2018 at 1600". The patient brought all home medications. Admission will be continuing when patient arrive to the unit.
[2018-01-27 20:44] VITALS: BP 119/81
--- NOTE | 2018-01-27 20:44 | NUR ---
ADMISSION NOTE Patient is a 22 year old male admitted to [facility] on 01/27/2018 @2044 for Opioid /"Heroin and Methamphetamine" withdrawal. Patient is alert and oriented x4. Patient is ambulatory with unstable gate and high level of intoxication. Height: 6'0 inches; Weigh by standing scale: 190lbs. Patient reports NKA, is on Regular Diet, Full Code, is on Fall and Seizures Precautions. Patient denies SI/HI now. PMH: Anxiety, Depression, History of Withdrawal-induced Seizures ,Insomnia. Patient reports " I relapsed half months ago after being sober for 10 days from 01/05/2018 to 01/15/2018". Patient said "I relapsed because I lost my job". VS: T: 99.8, BP: 119/81, HR 99, RR 18, RA O2SAT: 96%, pain: "0/10". Respirations even and unlabored. Pulse regular. Lung Sounds': diminished sounds throughout with wheezing noted. Patient denies SOB, cough, and chest pain. Bowel sounds active in all four quadrants. Abdomen is soft and non-tender. PERRLA, brisk capillary refill, apron operator equal and strong. Skin is warm and dry to touch. Patient has multiple scattered track bennett r/t to substance use. Patient brought home medications and were reconciled. Patient reports current Substance Use History: 1. "Heroin IV: 0.5 grams every day during last 6 months. Last used 0.5 grams on 01/27/2018 at 1600". 2."Metamphetamine via IV 0.3 gram every day. Last used 0.3 grams on 01/27/2018 at 1600". Patient reports "I am smoking 20 cigarettes = 1 pack every day since 2010". Education for smoking cessation provided. Patient reports previous treatment at "[facility]", [place], [place] in January, and August,". Patient is poor historian r/t high level of intoxication . UDS test not provided. Blood Labs drawn. Doctor Jian De Jeuss MD assessed patient. Orders placed. Patient oriented to his room, Nurse Call Light, and [facility] Floor. Encouraged fluids as tolerated. Encouraged to attend activities groups. All needs met. Safety measures on place. Call light within reach, bed in lowest position and locked, padded rails up bilaterally. Will continue to monitor closely.
[2018-01-27] MEDS ORDERED: DICYCLOMINE HCL 20 MG TABLET PO PRN (20:45)
[2018-01-27] MEDS ORDERED: METHOCARBAMOL 750 MG TABLET PO PRN (20:45)
[2018-01-27] MEDS ORDERED: MAG HYDROX/AL HYDROX/SIMETH 30 ML LIQUID UDC PO PRN (20:45)
[2018-01-27] MEDS ORDERED: ONDANSETRON ODT 4 MG TAB.RAPDIS SL PRN (20:45)
[2018-01-27] MEDS ORDERED: diphenhydrAMINE 50 MG CAPSULE PO PRN (20:45)
[2018-01-27] MEDS ORDERED: ACETAMINOPHEN 325 MG TABLET PO PRN (20:45)
[2018-01-27] MEDS ORDERED: IBUPROFEN 600 MG TABLET PO PRN (20:45)
[2018-01-27] MEDS ORDERED: CLONIDINE HCL 0.1 MG TABLET PO PRN (20:45)
[2018-01-27] MEDS ORDERED: MIRALAX 17 GM POWD.PACK PO PRN (20:45)
[2018-01-27] MEDS ORDERED: LORAZEPAM 1 MG TABLET PO PRN (20:45)
[2018-01-27] MEDS ORDERED: LOPERAMIDE HCL 2 MG CAPSULE PO PRN ×2 (20:45)
[2018-01-27] MEDS ORDERED: MAGNESIUM HYDROXIDE 30 ML LIQUID UDC PO PRN (20:45)
[2018-01-27] MEDS ORDERED: ONDANSETRON 4 MG/2 ML VIAL IM PRN (20:45)
[2018-01-27 20:58] LABS: BASOPHILS # (AUTO) 0.1 K/uL (0.0-8.0); BASOPHILS % (AUTO) 0.7 % (0.0-2.0); EOSINOPHILS # (AUTO) 0.2 K/uL (0.0-0.7); HEMATOCRIT 41.5 % (36.7-47.1); HEMOGLOBIN 14.2 g/dL (12.5-16.3); LYMPHOCYTES # (AUTO) 2.9 K/uL (20.0-40.0); LYMPHOCYTES % (AUTO) 29.3 % (20.5-51.5); MEAN CORPUSCULAR HEMOGLOBIN 29.1 uug (23.8-33.4); MEAN CORPUSCULAR HGB CONC 34 g/dL (32.5-36.3); MONOCYTES # (AUTO) 0.9 K/uL (2.0-10.0); MONOCYTES % (AUTO) 9.4 % (0.0-11.0); NEUTROPHILS # (AUTO) 5.8 K/uL (1.8-8.9); NEUTROPHILS % (AUTO) 58.6 % (38.5-71.5); PLATELET COUNT (AUTO) 270 K/uL (152-348); RED BLOOD CELL COUNT(AUTO) 4.89 MIL/uL (4.06-5.63); WHITE BLOOD COUNT (AUTO) 9.9 K/uL (3.6-10.2)
[2018-01-27 21:26] LABS: ETHANOL < 3 MG/DL (0-0)
[2018-01-27 21:28] LABS: ALANINE AMINOTRANSFERASE 51 U/L (16-63); ALKALINE PHOSPHATASE 103 U/L (50-136); ASPARTATE AMINOTRANSFERASE 33 U/L (15-37); BILIRUBIN,TOTAL 0.7 mg/dL (0.2-1.0); CARBON DIOXIDE 29 mmol/L (21-32); CHLORIDE 98 mmol/L (98-107); CREATININE 0.9 mg/dL (0.6-1.3); GLUCOSE 90 mg/dL (74-106); MAGNESIUM 1.9 mg/dL (1.8-2.4); POTASSIUM 3.9 mmol/L (3.5-5.1); TOTAL PROTEIN, SERUM 8.7 g/dL (6.4-8.2); UREA NITROGEN, BLOOD 10 mg/dL (7-18)
[2018-01-28] VITALS: BP 131/58
--- NOTE | 2018-01-28 | NUR ---
COWS DEFERRED COWS deferred d/t pt sleeping, to assess while pt is awake as ordered. All needs met. Safe and calm environment with minimized noises was provided. Safety measures on place. Call light within reach, bed in lowest position locked, padded rails up bilaterally. Will continue to monitor closely.
[2018-01-28] MEDS ORDERED: MAGN400C PO (00:45)
[2018-01-28] MEDS ORDERED: HYDR25CA PO (00:45)
[2018-01-28] MEDS ORDERED: ONDA4TAB11 PO (00:45)
[2018-01-28] MEDS ORDERED: DICY20TA11 PO (00:45)
[2018-01-28] MEDS ORDERED: DIPH50CA37 GT (00:45)
[2018-01-28] MEDS ORDERED: trintellix (00:45)
[2018-01-28] MEDS ORDERED: PARO25TA16 PO (00:45)
[2018-01-28 04:00] VITALS: BP 111/51
--- NOTE | 2018-01-28 04:00 | NUR ---
COWS DEFERRED COWS deferred at 0400 d/t pt sleeping, to assess while pt is awake as ordered. All needs met. Safe and calm environment with minimized noises was provided. Safety measures on place. Call light within reach, bed in lowest position locked, padded rails up bilaterally. Will continue to monitor closely.
[2018-01-28] MEDS ORDERED: BUPRENORPHINE HCL 2 MG TAB.SUBL SL PRN (06:00)
--- NOTE | 2018-01-28 07:02 | NUR ---
END OF SHIFT NOTE: Patient is a 22 year old male admitted on 01/27/2018 at 2044 for Opioid(Heroin) and Methamphetamine withdrawal. Patient is alert and oriented x4. Patient reports NKA, is on Regular Diet, Full Code, is on Fall and Seizures Precautions. Patient reports history of withdrawal induced seizures. Patient denies SI/HI. Patient's PRN Medications only, no taper ordered. Patient is ambulatory with unsteady gate, needs wheelchair to ambulate at the moment due to high level of intoxication. Patient also noted with stares blankly into space. Patient appears lethargic with flat affect, and with poor eye contact. Patient noted to be disheveled, unkempt and uncombed. Patient having slow thought process due to high level of intoxication. Skin is warm and dry to touch. Patient has multiple scattered track bennett r/t to substance use. No Medications administrated. Patient unable provided UDS test. Patient placed on Room Restriction due to UDS not being provided. Calm and safety environment with minimized noises provided. Patient slept 9 hours, intake 0 ml, voided x0. Encouraged to fluid intake as tolerated. All needs met. Safety measures in the place: Call light within reach, bed in the lowest position and locked, padded rails up x2. Patient endorsed to day shift nurse.
--- NOTE | 2018-01-28 07:38 | NUR ---
Start of shift- Patient is a 22 year old male admitted medically supervised withdrawal of Opioid(Heroin) and Methamphetamine. Pt asleep, responds to voice and light touch. Resp even and unlabored. . Patient having slow thought process due to high level of intoxication. Patient reports history of withdrawal induced seizures. Patient is ambulatory with unsteady gate, needs wheelchair to ambulate at the moment due to high level of intoxication. Patient noted to be disheveled, unkempt and uncombed. No Medications administrated last night. Patient unable provided urine drug test. Patient placed on Room Restriction due to urine drug test not being provided. Patient slept 9 hours. Encouraged to fluid intake as tolerated. Patient reports NKA, is on Regular Diet, Full Code, is on Fall and Seizures Precautions. Safety measures in the place: Call light within reach, bed in the lowest position and locked, padded rails up x2. Will continue to closely monitor s/s of withdrawal.
[2018-01-28 08:02] VITALS: BP 111/52
[2018-01-28] MEDS ORDERED: TUBERCULIN,PURIF.PROT.DERIV. 5 TU/0.1 ML TEST ID ONE (09:00)
--- NOTE | 2018-01-28 09:35 | NUR ---
Urine drug screen- Pt remains asleep and not able to urinate. Pt refused UDS at this time.
--- NOTE | 2018-01-28 10:35 | NUR ---
Pt awake, collected urine drug screen and MRSA swab.
[2018-01-28 11:04] LABS: *AMPHETAMINE, URINE POSITIVE (NEGATIVE); *BARBITURATE, URINE NEGATIVE (NEGATIVE); *CANNABINOID, URINE NEGATIVE (NEGATIVE); *COCCAINE, URINE NEGATIVE (NEGATIVE); *OPIATE, URINE POSITIVE (NEGATIVE); *PHENCYCLIDINE SCREEN,URINE NEGATIVE (NEGATIVE)
[2018-01-28 12:00] VITALS: BP 128/62
[2018-01-28] MEDS ORDERED: TRAZODONE 50 MG TABLET PO PRN (14:00)
[2018-01-28 16:00] VITALS: BP 123/61
--- NOTE | 2018-01-28 18:29 | NUR ---
End of shift- Patient is a 22 year old male admitted medically supervised withdrawal of Opioid (Heroin) and Methamphetamine. Pt A&OX4. Resp even and unlabored. Patient having slow thought process, disheveled, flat affect. Patient reports history of withdrawal induced seizures. Patient is ambulatory with steady gate. No Medications administrated today. Last COWS 4. Encourage pt to attend groups to learn/develop new copings kills to prevent relapse. Pt did not attend group therapy today. Encouraged to fluid intake as tolerated. Patient reports NKA, is on Regular Diet, Full Code, is on Fall and Seizures Precautions. Safety measures in place. Adequate PO fluid intake 800 ml, void X 2, no BM. Safety measures in place. Will continue to closely monitor s/s of withdrawal. Endorsed to PM shift.
--- NOTE | 2018-01-28 19:30 | NUR ---
START OF SHIFT Received 22 year old male patient admitted on 01/27/18 for Heroin and Methamphetamine withdrawal. Pt is alert and oriented x4. Pt is not on a taper but has PRN medications available. Pt reports anxiety and irritability. Pt noted with flat affect and withdrawn behavior. Per endorsement, pt did not receive or request PRN medications. Last COWS:4 at 1600. Breathing is even and unlabored, safety measures in place. Will monitor.
[2018-01-28 20:00] VITALS: BP 129/57
[2018-01-28] MEDS: QUETIAPINE FUMARATE 100 MG TABLET PO SCH (21:08)
[2018-01-29] VITALS: BP 119/72
--- NOTE | 2018-01-29 04:00 | NUR ---
VITALS REFUSED, COWS DEFERRED 0400 vitals refused. COWS deferred d/t pt lying in bed with eyes closed noted to be asleep. Breathing is even and unlabored, safety measures in place. Will monitor.
--- NOTE | 2018-01-29 07:04 | NUR ---
END OF SHIFT Pt is a 22 year old male patient admitted on 01/27/18 for Heroin and Methamphetamine withdrawal. He remains alert and oriented x4. He continues with PRN medications. Pt reported anxiety and irritability during the shift. He did not receive or request PRN medications. He slept a total of 8 hrs, Intake: 1091mL, Void: X1, BM:0, COWS:5 at 2000. Breathing is even and unlabored, safety measures in place. Endorsed to AM shift.
--- NOTE | 2018-01-29 07:34 | NUR ---
Start of shift Received 22 year old male patient admitted on 01/27/18 for Heroin and Methamphetamine withdrawal. Pt is alert and oriented x4. Pt is not on a taper but has PRN medications available. Pt reports anxiety, nausea, body aches and sweats. Pt noted with flat affect and withdrawn behavior. Per endorsement, pt did not receive or request PRN medications. Last COWS 5. Will continue to encourage pt to attend groups to learn/develop new copings kills to prevent relapse. Pt slept for a total of 8 hours. Pt FULL CODE, NKA. Safety measures in place. Will continue to closely monitor s/s of withdrawal.
[2018-01-29 08:01] VITALS: BP 131/73
[2018-01-29] MEDS: buPROPion SR 100 MG TABLET.SA PO SCH (08:20)
[2018-01-29] MEDS: TRINTELLIX 10 MG PO SCH (08:21)
[2018-01-29] MEDS: HYDROXYZINE PAMOATE 25 MG CAPSULE PO PRN ×2 (08:25→21:17)
--- NOTE | 2018-01-29 08:26 | NUR ---
PRN MEDICATIONS MOTRIN 600 MG FOR BACK PAIN #4/10 ROBAXIN 750 MG PO FOR BODY ACHES VISTARIL 25 MG PO FOR ANXIETY ZOFRAN 4 MG SL FOR NAUSEA
[2018-01-29] MEDS ORDERED: MISCELLANEOUS MED PO SCH (09:00)
--- NOTE | 2018-01-29 09:29 | NUR ---
REASSESS PRN MEDICATIONS- WOKE PT UP FROM A NAP TO ASSESS EFFECTIVENESS OF PRN MEDICATIONS.PT REPORTS NAUSEA RESOLVED, PAIN AND BODY ACHES IMPROVED. PAIN #2/10. PT FEELS LESS ANXIOUS AND IS NAPPING.
[2018-01-29 12:00] VITALS: BP 127/60
[2018-01-29 12:06] LABS: HEPATITIS B SURFACE AG Negative (Negative)
[2018-01-29 16:00] VITALS: BP 118/61
--- NOTE | 2018-01-29 18:31 | NUR ---
End of shift Patient is a 22 year old male admitted medically supervised withdrawal of Opioid and Methamphetamine. Pt to discharged tomorrow. Unshaved, but he did shower today. Pt reports anxiety, nausea, body aches and sweats. Pt noted with flat affect and withdrawn behavior. Pt slept intermittently today. PRN Medications administrated today; Motrin, Robaxin, Zofran and Vistaril. Last COWS 4. Encourage pt to attend groups to learn/develop new copings kills to prevent relapse. Pt did not attend group therapy today. Encouraged to fluid intake as tolerated. Patient reports history of withdrawal induced seizures. Patient reports NKA, Full Code, is on Fall and Seizures Precautions. Safety measures in place. Adequate PO fluid intake 1651 ml, void X 3, BM X1. Safety measures in place. Will continue to closely monitor s/s of withdrawal. Endorsed to PM shift.
[2018-01-29] MEDS ORDERED: DICY20TA28 PO (18:42)
[2018-01-29] MEDS ORDERED: IBUP-1955 PO (18:42)
[2018-01-29] MEDS ORDERED: HYDR-3895 PO (18:42)
[2018-01-29] MEDS ORDERED: TRAZ-144 PO (18:42)
[2018-01-29] MEDS ORDERED: METH-406 PO (18:42)
[2018-01-29] MEDS ORDERED: CLON0.1T14 PO (18:42)
[2018-01-29] MEDS ORDERED: GABA-534 PO (18:42)
--- NOTE | 2018-01-29 19:30 | NUR ---
START OF SHIFT Pt is a 22 y/o male admitted on 01/27/18 for opiate and meth withdrawal. Pt had PRN Subutex available, tolerating well and is scheduled to be d/c tomorrow. Pt received PRN Motrin, Robaxin, Zofran odt and Vistaril and last COWS 4 during day shift. Upon assessment pt presents with severe anxiety, disheveled appearance, flat affect, unkempt room, poor eye contact, dysphoria, anhedonia and is withdrawn. Medications due. Safety measures in place. Call light within reach. Will continue to monitor.
[2018-01-29 20:00] VITALS: BP 133/58
[2018-01-29] MEDS: GABAPENTIN 300 MG CAPSULE PO SCH (21:00)
[2018-01-29] MEDS ORDERED: CLONIDINE HCL 0.1 MG TABLET PO ONE (21:00)
[2018-01-29] MEDS: QUETIAPINE FUMARATE 100 MG TABLET PO SCH (21:17)
--- NOTE | 2018-01-29 21:17 | NUR ---
PRN VISTARIL ADMINISTRATION AND REFUSAL OF SCHEDULED GABAPENTIN Pt has severe anxiety, Vistaril administered and relaxation techniques encouraged. Pt refused scheduled gabapentin, educated pt about risks/benefits of medication. Pt states "I don't feel like it does anything." Safety measures in place. Call light within reach. Will continue to monitor.
--- NOTE | 2018-01-29 22:17 | NUR ---
PRN VISTARIL REASSESSMENT Pt laying in bed with eyes closed, medication noted effective. Safety measures in place. Call light within reach. Will continue to monitor.
--- NOTE | 2018-01-30 | NUR ---
COWS DEFERRED AND VITALS REFUSED Pt laying in bed with eyes closed, COWS deferred, to be assessed when pt is awake per orders. Vitals refused. Respirations even and unlabored. Safety measures in place. Call light within reach. Will continue to monitor.
--- NOTE | 2018-01-30 06:58 | NUR ---
END OF SHIFT Pt is a 22 y/o male admitted on 01/27/18 for opiate and meth withdrawal. Pt had PRN Subutex available, tolerating well and is scheduled to be d/c today. Pt presented with severe anxiety, disheveled appearance, flat affect, unkempt room, poor eye contact, dysphoria, anhedonia and was withdrawn. Scheduled medications and PRN Vistaril administered. Pt refused scheduled gabapentin, education about risks/benefits of medication provided, pt understood. Last COWS 2. Pt slept 8 hours. Intake 1046 ml, void x 2, stool x 0. Safety measures in place. Call light within reach. Will continue to monitor.
--- NOTE | 2018-01-30 07:15 | NUR ---
START OF SHIFT : PATIENT IS A 22 YR OLD MALE ADMITTED TO [facility] ON 01/27/18 FOR A MEDICALLY SUPERVISED WITHDRAWAL FROM OPIATES ( HEROIN ) AND METHAMPHETAMINE. CURRENTLY HE IS ASLEEP IN BED BUT EASILY AROUSABLE TO NAME. PRN MEDS GIVEN ON PM SHIFT : VISTARIL , LAST CIWA 2 AND PT SLEPT FOR 8 HOURS . PATIENT IS TO BE DISCHARGED TODAY , AWAITING FURTHER TREATMENT PLACEMENT. CONTINUE TO FOLLOW MD ORDERS.
[2018-01-30 08:00] VITALS: BP 116/56
[2018-01-30] MEDS: buPROPion SR 100 MG TABLET.SA PO SCH (08:28)
[2018-01-30] MEDS: TRINTELLIX 10 MG PO SCH (08:28)
[2018-01-30] MEDS: GABAPENTIN 300 MG CAPSULE PO SCH (08:29)
--- NOTE | 2018-01-30 08:54 | NUR ---
SCHEDULE GABAPENTIN REFUSED
[2018-01-30 12:00] VITALS: BP 135/72
--- NOTE | 2018-01-30 16:09 | NUR ---
Therapist prompted client to attend daily group counseling sessions.
--- NOTE | 2018-01-30 17:00 | NUR ---
DISCHARGE NOTE : PATIENT IS A 22 YR OLD MALE ADMITTED TO [facility] ON 01/27/18 FOR A MEDICALLY SUPERVISED WITHDRAWAL FROM OPIATES AND METHAMPHETAMINES. PATIENT IS READY TO DISCHARGE TO GO TO " [facility] ". ALL PAPERWORK SIGNED AND DATED, ALL PRESCRIPTIONS, BELONGINGS AND MEDICATIONS RETURNED TO PATIENT. VITAL SIGNS STABLE : BP 135/72, HR 74, RR 16, T 98.6, O2 SATS 99% COWS 2. LAST BM 01/30/18. PATIENT STATES HE HAS NO SI/HI. PATIENT AMBULATED OFF THE UNIT AND WAS PICKED UP BY PRIVATE CAR FOR TRANSFER TO " [facility] ".
== END 2018-01-30 17:15 | disposition other institution (70) | DRG 895 ==
LOC: SRC 19:49
PROVIDERS: ADMIT Internal Medicine; ATTEND Internal Medicine
PROC: HZ2ZZZZ Detoxification Services for Substance Abuse Treatment (ICD-10-PCS; principal; 2018-01-27)
PROC: HZ41ZZZ Group Counseling for Substance Abuse Treatment, Behavioral (ICD-10-PCS; 2018-01-30)
DX: F11.23 Opioid dependence with withdrawal (principal); F33.1 Major depressive disorder, recurrent, moderate; F12.10 Cannabis abuse, uncomplicated; F41.1 Generalized anxiety disorder; Z91.89 Other specified personal risk factors, not elsewhere classified; Z81.1 Family history of alcohol abuse and dependence; Z59.0 Homelessness; G47.00 Insomnia, unspecified; Z79.899 Other long term (current) drug therapy; F41.0 Panic disorder [episodic paroxysmal anxiety]; F17.210 Nicotine dependence, cigarettes, uncomplicated; F15.10 Other stimulant abuse, uncomplicated; Z59.1 Inadequate housing; R26.81 Unsteadiness on feet
CPT/HCPCS: 36415; 70030-TC; 80307; 80324; 80361; 83735; 85025; 86580; 86592; 86705; 86803; 87340; 87806; G0480; Q0162